=== PATIENT | female | born 1980 | race Caucasian/White ===

== ENCOUNTER 2017-04-17 17:05 | Emergency (ER) | payer SELFPAY ==
--- NOTE | ~2017-04-17 | ER ---
PATIENT'S NAME: PB BARRIOS [facility] AGE: 36 Y [address] ROOM: [place] [address] LOCATION: ED ADMIT DATE: 04/17/2017 ER/Outpatient Report DISCHARGE DATE: 04/17/2017 FAMILY PHYSICIAN: PHYSICIAN, NO ATTENDING PHYSICIAN: Lenny Perez TIME SEEN:: 1720 HISTORY OF PRESENT ILLNESS: This is a 36-year-old female, who presents with cold-like symptoms which included nasal congestion, cough, sore throat. Symptoms started about 3 days ago. Cough is nonproductive. She denies any wheezing. ALLERGIES: SHE IS ALLERGIC TO LATEX, PENICILLIN, AND ROCEPHIN. CURRENT MEDICATIONS: None. PAST MEDICAL HISTORY: Asthma, she has a history of anemia, endometriosis. PAST SURGICAL HISTORY: Previous C-sections x3 and cholecystectomy. SOCIAL HISTORY: She does smoke. 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 REVIEW OF SYSTEMS: GENERAL: No fevers or chills. HEENT: Includes some nasal congestion, sore throat. RESPIRATORY: Non-productive cough. PHYSICAL EXAMINATION: VITAL SIGNS: Blood pressure 158/81, her temperature is 97.8 respiratory rate 20, pulse 90, and O2 saturations 98%. GENERAL APPEARANCE: Nontoxic, alert female. EARS: Both TM appeared normal with normal light reflex. NOSE: Airways patent. THROAT: There was no erythema. No postnasal drainage. LUNGS: Peripherally sounded clear throughout. SKIN: Warm and dry. No presence of rash. ASSESSMENT: PATIENT'S NAME: PB BARRIOS [facility] AGE: 36 Y [address] ROOM: [place] [address] LOCATION: ED ADMIT DATE: 04/17/2017 ER/Outpatient Report DISCHARGE DATE: 04/17/2017 FAMILY PHYSICIAN: PHYSICIAN, NO ATTENDING PHYSICIAN: Lenny Perez Upper respiratory infection, probable viral. PLAN: Recommend lmre-brs-btrydsn Robitussin DM a couple of teaspoons every 6 hours. Encouraged fluids. Follow up with her primary care provider if not improving in the next couple of days. EAGLE TOURE LAMA, MD SWJ/modl /[id number] d: 04/17/17 2308 t: 04/27/17 1058, OUTPATIENT REPORT
== END 2017-04-17 17:43 | disposition disaster alternative care site (69) ==
LOC: GMED 17:05
DX: J06.9 Acute upper respiratory infection, unspecified (principal); J45.909 Unspecified asthma, uncomplicated; D64.9 Anemia, unspecified; F17.210 Nicotine dependence, cigarettes, uncomplicated; Z88.0 Allergy status to penicillin; Z91.040 Latex allergy status; Z88.1 Allergy status to other antibiotic agents; Z90.49 Acquired absence of other specified parts of digestive tract

== ENCOUNTER 2017-04-27 09:49 | Emergency (ER) | payer SELFPAY ==
--- NOTE | ~2017-04-27 | ER ---
[facility] 36 [facility] [address] ROOM: [place] [address] LOCATION: [facility] ADMIT DATE: 04/27/2017 ER/Outpatient Report DISCHARGE DATE: 04/27/2017 FAMILY PHYSICIAN: PHYSICIAN, NO ATTENDING PHYSICIAN: Rona Rosas Time of Arrival: 0949 hours. Time of Exam: 1012 hours. IDENTIFICATION: A 36-year-old female. CHIEF COMPLAINT: Headache. HISTORY OF PRESENT ILLNESS: The patient has had a headache for 4 days, bilateral posterior headache. She has a history of migraines, this is the 3rd one in 3 weeks, but this one she cannot get to go away with despite treatment at home using ibuprofen, Tylenol, Excedrin PM, aspirin, and Benadryl. She has had no fever or chills. She has no neck stiffness. She has no numbness or tingling. She does have photophobia and nausea. ALLERGIES: PENICILLIN AND ROCEPHIN, BOTH CAUSE ANAPHYLAXIS AND LATEX. CURRENT MEDICATIONS: 1. Ibuprofen 800 mg p.r.n. 2. Tylenol p.r.n. 3. Excedrin PM p.r.n. 4. Aspirin p.r.n. 5. Benadryl p.r.n. 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 PRIOR SURGERIES: Cholecystectomy and sections. SOCIAL HISTORY: The patient lives here in [place]. Tobacco use, half a pack per day for 19 years. Alcohol use, denies. Drug use, meth. Heroin, PCP, last use in August of 2016. [facility]GE: 36 Y [address] ROOM: [place] [address] LOCATION: [facility] ADMIT DATE: 04/27/2017 ER/Outpatient Report DISCHARGE DATE: 04/27/2017 FAMILY PHYSICIAN: PHYSICIAN, NO ATTENDING PHYSICIAN: Rona Rosas FAMILY HISTORY: No pertinent family history identified. REVIEW OF SYSTEMS: All systems are reviewed and negative other than what is noted in the HPI. PHYSICAL EXAMINATION: VITAL SIGNS: Height 5 feet 0 inches, weight 96.9 kg. Blood pressure 138/74, pulse 84, respirations 16, temperature 98.5, and saturations 100% on room air. GENERAL: This is a 36-year-old female, in obvious distress, 10/10 headache, and photophobia. HEENT: Eyes: Pupils are equal and reactive to light and accommodation. Extraocular movements are intact. Nose: Mucosa pink. No lesions or drainage. Mouth: No lesions. Pharynx benign. NECK: Supple. No lymphadenopathy. No thyromegaly. LUNGS: Clear to auscultation. Breath sounds are equal. No rhonchi, wheezes, or rales. HEART: Regular rate and rhythm. No murmur, rub, or gallop. ABDOMEN: Bowel sounds present. Soft, nondistended, and nontender. SKIN: Alpha, warm, and dry. No lesions or rashes noted. NEURO: The patient is alert and oriented x4. Cranial nerves 2 through 12 grossly intact. Motor strength 5/5 throughout. Sensation is intact to light touch. No lower extremity edema. EMERGENCY ROOM COURSE: IV was initiated. Labs were obtained. 1 L of IV fluids was infused. Compazine 10 mg IV, Benadryl 50 mg IV, Toradol 10 mg IV with improvement of her pain from 10 to 1. Urine drug screen negative. Hemoglobin 15.6, hematocrit 46.1, platelets 200, white count 7.8 with normal differential. Sedimentation rate 19. UA negative. Sodium 136, potassium 4.2, chloride 105, CO2 of 26, BUN 10, creatinine 0.7, and blood sugar 89. Liver enzymes normal. CRP less than 0.29. HCG less than 1. Head CT, negative per Radiology. IMPRESSION: Migraine headache, improved. PLAN: Home, to rest. Migraine handout. Continue current medications and follow up with physician of choice or [facility] in 1-4 days, follow up sooner if any problems or concerns. The patient understands and agrees, and all questions have been answered. PATIENT'S NAME: PB BARRIOS [facility] AGE: 36 Y [address] ROOM: [place] [address] LOCATION: [facility] ADMIT DATE: 04/27/2017 ER/Outpatient Report DISCHARGE DATE: 04/27/2017 FAMILY PHYSICIAN: PHYSICIAN, NO ATTENDING PHYSICIAN: Rona Rosas MD CAR/modl /[id number] d: 04/28/17 1849 t: 04/30/17 1501, OUTPATIENT REPORT
[2017-04-27 11:01] LABS: BASOPHIL % 0.4 %; EOSINOPHIL # 0.2 K/uL (0.0-0.5); HEMATOCRIT 46.1 % (33.0-46.0); HEMOGLOBIN 15.6 g/dL (11.0-15.0); IMMATURE GRANULOCYTE % 0.3 %; LYMPHOCYTE # 2.6 K/uL (0.8-4.0); LYMPHOCYTE % 33.7 %; MCH 30.1 pg (27.0-34.0); MCHC 33.8 gm/dL (32.0-36.5); MONOCYTE # 0.5 K/uL (0.0-1.0); MPV 9.9 fl (9.4-12.4); NEUTROPHIL # (ANC) 4.5 K/uL (1.8-7.8); NEUTROPHIL % 57.6 %; NRBC % 0 /100WBC (0-0.00); PLATELET COUNT 200 K/uL (150-450); RBC 5.18 M/uL (3.50-5.50); RDW-CV 12.7 % (11.9-14.6); WBC 7.8 K/uL (4.0-11.0)
[2017-04-27 11:14] LABS: ALBUMIN 4.2 gm/dL (3.5-5.0); ALK PHOS 127 IU/L (33-138); ALT 20 IU/L (12-78); ANION GAP 9.2 (10.0-19.0); AST 13 IU/L (10-40); BLOOD UREA NITROGEN 10 mg/dL (6-24); CALCIUM 8.7 mg/dL (8.5-10.5); CHLORIDE 105 mMol/L (96-110); CO2 26 mMol/L (22-32); CREATININE 0.7 mg/dL (0.5-1.1); POTASSIUM 4.2 mMol/L (3.7-5.1); SODIUM 136 mMol/L (135-145); TOTAL BILIRUBIN 0.5 mg/dL (0.0-1.5); TOTAL PROTEIN 8.7 g/dL (6.0-8.4)
[2017-04-27 11:33] LABS: BILIRUBIN URINE NEGATIVE (NEGATIVE); BLOOD URINE NEGATIVE /UL (NEGATIVE); COLOR URINE YELLOW (YELLOW); GLUCOSE URINE NEGATIVE (NEGATIVE); KETONE URINE NEGATIVE (NEGATIVE); LEUKOCYTES URINE NEGATIVE /UL (NEGATIVE); NITRITE URINE NEGATIVE (NEGATIVE); PROTEIN URINE NEGATIVE (NEGATIVE); SPEC GRAVITY URINE 1.015 (1.003-1.035); TURBIDITY URINE CLEAR (CLEAR); UROBILINOGEN URINE NORMAL (NORMAL)
[2017-04-27 11:47] LABS: BARBITURATE NEGATIVE (NEGATIVE); COCAINE NEGATIVE (NEGATIVE); OPIATES NEGATIVE (NEGATIVE)
[2017-04-27 11:48] LABS: AMPHETAMINE NEGATIVE (NEGATIVE)
== END 2017-04-27 12:44 | disposition disaster alternative care site (69) ==
LOC: GMED 09:49
PROVIDERS: Family Medicine
DX: G43.909 Migraine, unspecified, not intractable, without status migrainosus (principal); J45.909 Unspecified asthma, uncomplicated; D57.1 Sickle-cell disease without crisis; F41.9 Anxiety disorder, unspecified; F17.210 Nicotine dependence, cigarettes, uncomplicated; F32.9 Major depressive disorder, single episode, unspecified; Z90.49 Acquired absence of other specified parts of digestive tract; Z88.0 Allergy status to penicillin; Z88.8 Allergy status to other drugs, medicaments and biological substances; Z91.040 Latex allergy status; Z98.890 Other specified postprocedural states; Z79.82 Long term (current) use of aspirin; Z79.899 Other long term (current) drug therapy
CPT/HCPCS: J0780; J1200; J1885; J7030